=== PATIENT | female | born 1985 | race Caucasian/White ===

== ENCOUNTER 2017-07-02 15:07 | Emergency (ER) | payer BC, SELFPAY ==
[2017-07-02 15:20] VITALS: BP 136/80
--- NOTE | 2017-07-02 15:46 | EDM.PDOC ---
ED HPI GENERAL MEDICAL PROBLEM - General Chief Complaint: Genitourinary Problem Stated Complaint: BLADDER INFECTION Time Seen by Provider: 07/02/17 15:32 Source of Information: Reports: Patient, RN Notes Reviewed - History of Present Illness INITIAL COMMENTS - FREE TEXT/NARRATIVE: 4-year-old female comes in with lower abdominal discomfort, chills and just not feeling "normal". She has had some radiation of discomfort to bilateral low back. A mild voiding dysuria and frequency. She's had some slight nausea, no vomiting or diarrhea. Bladder Pain Score (Numeric/FACES): 8 - Related Data Allergies Allergy/AdvReac Type Severity Reaction Status Date / Time amoxicillin Allergy Hives Verified 07/02/17 15:20 Penicillins Allergy Hives Verified 07/02/17 15:20 Home Meds: Home Meds Cetirizine [ZyrTEC] 10 mg PO DAILY 01/21/16 [History] Desogestrel-Ethinyl Estradiol [Apri 28 Day Tablet] 1 tab PO DAILY 01/21/16 [ History] Losartan Potassium 50 mg PO BID 01/21/16 [History] buPROPion [buPROPion XL] 1 tab PO DAILY 01/21/16 [History] metFORMIN HCl [Metformin HCl] 500 mg PO BID 01/21/16 [History] Past Medical History HEENT History: Reports: Allergic Rhinitis, Otitis Media Cardiovascular History: Reports: Hypertension Other Respiratory History: Severe snoring Genitourinary History: Reports: Other (See Below) Other Genitourinary History: abnormal bun to cre ratio, hematura, proteinura, renal biopsy 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: Polycystic Ovaries Other OB/BYN History: amenorrhea, irregular menses, PCOS, pelvic pain, Psychiatric History: Reports: Anxiety, Depression Endocrine/Metabolic History: Reports: Obesity/BMI 30+ Other Endocrine/Metabolic History: abnormal glucose, L thyroid nodule - Infectious Disease History Infectious Disease History: Reports: Chicken Pox, MRSA - Past Surgical History Respiratory Surgical History: Reports: None Female Surgical History: Reports: Breast Biopsy Endocrine Surgical History: Reports: Other (See Below) Dermatological Surgical History: Reports: None Social & Family History - Family History HEENT: Reports: None Cardiac: Reports: High Cholesterol, Hypertension Respiratory: Reports: Asthma GI: Reports: Cirrhosis, Hepatitis Neurological: Reports: Alzheimers Disease, Dementia Endocrine/Metabolic: Reports: Diabetes, type II, Hypothyroidism Oncologic: Reports: Breast - Tobacco Use Smoking Status *Q: Never Smoker Second Hand Smoke Exposure: No - Caffeine Use Caffeine Use: Reports: None - Recreational Drug Use Recreational Drug Use: No ED ROS GENERAL - Review of Systems Review Of Systems: See Below Constitutional: Reports: Chills. Denies: Fever HEENT: Denies: Throat Pain Respiratory: Denies: Shortness of Breath Cardiovascular: Denies: Chest Pain GI/Abdominal: Reports: Abdominal Pain (mild achy lower abdominal and mid pelvic discomfort), Nausea. Denies: Vomiting : Reports: Dysuria, Frequency Musculoskeletal: Reports: Back Pain Skin: Reports: No Symptoms Neurological: Reports: No Symptoms ED EXAM, RENAL/ - Physical Exam Exam: See Below General Appearance: Alert, No Apparent Distress Throat/Mouth: Normal Inspection, Normal Oropharynx Head: Atraumatic. No: Facial Swelling Neck: Supple, Full Range of Motion. No: Lymphadenopathy (L), Lymphadenopathy (R ) Respiratory/Chest: No Respiratory Distress, Lungs Clear, Normal Breath Sounds Cardiovascular: Regular Rate, Rhythm GI/Abdominal: Soft, Tender (very mild tenderness lower mid abdomen). No: Guarding Extremities: Normal Inspection Neurological: Alert, Oriented Skin Exam: Warm, Dry, Normal Color Course - Vital Signs Last Recorded V/S: Last Vital Signs Temp 97.4 F 07/02/17 15:16 Pulse 87 07/02/17 15:16 Resp 16 07/02/17 15:16 BP 136/80 07/02/17 15:16 Pulse Ox 98 07/02/17 15:16 - Orders/Labs/Meds Labs: Laboratory Tests 07/02/17 07/02/17 Range/Units 15:20 15:20 Urine Color Yellow (Yellow) Urine Appearance Clear (Clear) Urine pH 6.0 (5.0-8.0) Ur Specific [place] > or = 1.030 (1.005-1.030) Urine Protein Negative (Negative) Urine Glucose (UA) Negative (Negative) Urine Ketones Negative (Negative) Urine Occult Blood Negative (Negative) Urine Nitrite Negative (Negative) Urine Bilirubin Negative (Negative) Urine Urobilinogen 0.2 (0.2-1.0) Ur Leukocyte Esterase Negative (Negative) Urine RBC Not seen (0-5) /hpf Urine WBC Not seen (0-5) /hpf Ur Epithelial Cells 0-5 (0-5) /hpf Urine Bacteria Few (FEW) /hpf Urine Mucus Few (FEW) /hpf Urine HCG, Qual Negative (NEGATIVE) Departure - Departure Time of Disposition: 16:34 Disposition: Home, Self-Care 01 Condition: Fair Clinical Impression: Abdominal pain Qualifiers: Abdominal location: lower abdomen, unspecified Qualified Code(s): R10.30 - Lower abdominal pain, unspecified Back pain Qualifiers: Back pain location: low back pain Chronicity: unspecified Back pain laterality : bilateral Sciatica presence: without sciatica Qualified Code(s): M54.5 - Low back pain - Discharge Information Referrals: Stephenie Fountain NP [Primary Care Provider] - Forms: ED Department Discharge Additional Instructions: drink plenty of water to maintain hydration, no evidence found for bladder or kidney infection today. Followup clinic as needed, return to ED as needed if symptoms worsening in any way
== END 2017-07-02 16:43 | disposition home or self-care (01) ==
LOC: JD.ED 15:07
DX: R10.30 Lower abdominal pain, unspecified (principal); M54.5 Low back pain; I10 Essential (primary) hypertension; Z88.0 Allergy status to penicillin; Z88.1 Allergy status to other antibiotic agents; Z79.899 Other long term (current) drug therapy; Z79.84 Long term (current) use of oral hypoglycemic drugs
CPT/HCPCS: 81001; 81025; 99283

== ENCOUNTER 2019-10-08 18:27 | Emergency (ER) | payer BC ==
[2019-10-08 18:44] VITALS: BP 122/59; PULSE 114
[2019-10-08] MEDS ORDERED: Sodium Chloride 0.9% 1,000 ML IV SCH (19:30)
--- NOTE | 2019-10-08 19:42 | EDM.PDOC ---
ED HPI GENERAL MEDICAL PROBLEM - General Chief Complaint: Respiratory Problem Stated Complaint: DX'D AT OUR CLINIC WITH PNEUMONIA Time Seen by Provider: 10/08/19 18:58 Source of Information: Reports: Patient, Family (Parents, child), Old Records ( CBC, CXR report 10/08/2019) History Limitations: Reports: No Limitations - History of Present Illness INITIAL COMMENTS - FREE TEXT/NARRATIVE: Ms. Cano is a pleasant 34-year-old woman with a past medical history significant for allergic rhinitis, hypertension, anxiety/depression, polycystic ovarian disease, membranous nephropathy, and a history of MRSA in 2007, who states that she developed a cough productive of aubree sputum this past , 10/03/2019 or 10/04/2019. She then developed dyspnea and chest pain yesterday, 10/07/2019. She has not had a fever. She saw her PCP in the clinic today. A CBC and chest x-ray were performed. The CBC was remarkable for a WBC count elevated at 24.65 with 3% bandemia and 82.6% neutrophilia, with the remainder of the CBC being unremarkable. The chest x-ray was read by Dr. Adams as: 1. Possible loculated right-sided pleural effusion. Other findings as noted above. 2. Consideration for chest CT could be made to further define the chest findings. Based on the CBC results and the initial viewing of the chest x-ray, the patient was told that she has pneumonia, and prescribed Levaquin. She has purchased the Levaquin, but has not started it, because since then, she was contacted by the clinic, after they received the formal chest x-ray report, and instructed to come to the ED for further evaluation and possible admission to the hospital. Despite the patient's prior history of MRSA, she reports that she continues to use antibacterial soap at home. The patient's PCP is Stephenie Fountain NP. 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 She states that she received an influenza vaccine in July 2019. 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 (see below) Other Treatments CASINO SLOT SUPERVISOR: neb treatment at home Chest Pain Score (Numeric/FACES): 8 - Related Data Allergies Allergy/AdvReac Type Severity Reaction Status Date / Time amoxicillin Allergy Hives Verified 08/12/18 14:49 Penicillins Allergy Hives Verified 08/12/18 14:49 Home Meds: Home Meds Cetirizine [ZyrTEC] 10 mg PO DAILY 01/21/16 [History] Losartan Potassium 50 mg PO BID 01/21/16 [History] buPROPion [buPROPion XL] 150 mg PO DAILY 01/21/16 [History] metFORMIN HCl [Metformin HCl] 500 mg PO BID 01/21/16 [History] Levothyroxine [Synthroid] 88 mcg PO DAILY 10/08/19 [History] Past Medical History HEENT History: Reports: Allergic Rhinitis Cardiovascular History: Reports: Hypertension Genitourinary History: Reports: Other (See Below) (Membranous nephropathy) 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: Polycystic Ovaries Psychiatric History: Reports: Anxiety, Depression Endocrine/Metabolic History: Reports: Obesity/BMI 30+ - Infectious Disease History Infectious Disease History: Reports: Chicken Pox, MRSA (2007) - Past Surgical History Female Surgical History: Reports: Section (x 1), Other (See Below) ( Left kidney biopsy) Dermatological Surgical History: Reports: Other (See Below) (Right breast debridement) Social & Family History - Family History HEENT: Reports: None Cardiac: Reports: High Cholesterol, Hypertension Respiratory: Reports: Asthma GI: Reports: Cirrhosis, Hepatitis Neurological: Reports: Alzheimers Disease, Dementia Endocrine/Metabolic: Reports: Diabetes, type II, Hypothyroidism Oncologic: Reports: Breast - Tobacco Use Smoking Status *Q: Never Smoker - Caffeine Use Caffeine Use: Reports: None - Alcohol Use Alcohol Use History: No - Recreational Drug Use Recreational Drug Use: No - Living Situation & Occupation Living situation: Reports: Single, with Family 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 ED EXAM, GENERAL - Physical Exam Exam: See Below Exam Limited By: No Limitations General Appearance: Alert, WD/WN, No Apparent Distress Eye Exam: Bilateral Eye: EOMI, Normal Inspection Ears: Normal External Exam, Hearing Grossly Normal Nose: Normal Inspection Throat/Mouth: Normal Inspection, Normal Lips, Normal Voice, No Airway Compromise Head: Atraumatic, Normocephalic Neck: Normal Inspection, Full Range of Motion Respiratory/Chest: No Respiratory Distress, Decreased Breath Sounds (right side only), Crackles (Right lower 2/3. Clear elsewhere.). No: Rhonchi, Wheezing, Stridor, Prolonged Expiration Cardiovascular: Normal Peripheral Pulses, No Edema, No Gallop, No JVD, No Murmur , No Rub, Tachycardia (regular) Peripheral Pulses: 4+: Radial (L), Radial (R) GI/Abdominal: Normal Bowel Sounds, Soft, Non-Tender, No Organomegaly, No Distention, No Abnormal Bruit, No Mass (Female) Exam: Deferred Rectal (Female) Exam: Deferred Back Exam: Normal Inspection, Full Range of Motion, NT Extremities: Normal Inspection, Normal Range of Motion, No Pedal Edema, Normal Capillary Refill Neurological: Alert, Oriented, Normal Cognition, No Motor/Sensory Deficits Psychiatric: Normal Affect Skin Exam: Warm, Dry, Intact, Normal Color, No Rash Course - Vital Signs Last Recorded V/S: Last Vital Signs Temp 37.8 C 10/08/19 18:42 Pulse 114 H 10/08/19 18:42 Resp 36 H 10/08/19 18:42 BP 122/59 L 10/08/19 18:42 Pulse Ox 92 L 10/08/19 18:42 - Orders/Labs/Meds Orders: Active Orders 24 hr Category Date Time Status Chest w Cont [CT] Stat Exams 10/08/19 19:28 Taken CULTURE BLOOD [BC] Stat Lab 10/08/19 22:10 Received CULTURE BLOOD [BC] Stat Lab 10/08/19 22:20 Received Blood Culture x2 Reflex Set [OM.PC] Stat Oth 10/08/19 21:53 Ordered Labs: Laboratory Tests 10/08/19 10/08/19 Range/Units 16:00 19:42 Sodium 138 (136-145) mEq/L Potassium 3.2 L (3.5-5.1) mEq/L Chloride 102 (98-107) mEq/L Carbon Dioxide 20 L (21-32) mEq/L Anion Gap 19.2 H (5-15) BUN 34 H (7-18) mg/dL Creatinine 2.3 H D (0.55-1.02) mg/dL Est Cr Clr Drug Dosing 32.57 mL/min Estimated GFR (MDRD) 24 (>60) mL/min BUN/Creatinine Ratio 14.8 (14-18) Glucose 109 H (74-106) mg/dL Calcium 8.5 (8.5-10.1) mg/dL Total Bilirubin 0.7 (0.2-1.0) mg/dL AST 12 L (15-37) U/L ALT 16 (14-59) U/L Alkaline Phosphatase 118 H (46-116) U/L Total Protein 6.5 (6.4-8.2) g/dl Albumin 2.5 L (3.4-5.0) g/dl Globulin 4.0 gm/dL Albumin/Globulin Ratio 0.6 L (1-2) MRSA (PCR) Negative Meds: Medications Discontinued Medications Generic Name Dose Route Start Last Admin Trade Name Freq PRN Reason Stop Dose Admin Sodium Chloride 1,000 mls @ 150 mls/hr 10/08/19 19:30 10/08/19 19:47 Normal Saline IV 150 mls/hr ASDIRECTED GUSTABO Administration Levofloxacin/Dextrose 750 mg/ 150 mls @ 100 mls/hr 10/08/19 21:37 10/08/19 22 :16 Premix IV 10/08/19 23:06 100 mls/hr ONETIME STA Administration Meropenem 1 gm/ Sodium 100 mls @ 200 mls/hr 10/08/19 21:36 10/08/19 22:16 Chloride IV 10/08/19 22:05 200 mls/hr ONETIME STA Administration Metronidazole 500 mg/ Premix 100 mls @ 100 mls/hr 10/08/19 21:38 10/08/19 22: 16 IV 10/08/19 22:37 100 mls/hr ONETIME STA Administration Iopamidol 80 ml 10/08/19 20:40 10/08/19 20:58 Isovue-300 (61%) IVPUSH 10/08/19 20:41 80 ml ONETIME ONE Administration Potassium Chloride 40 meq 10/08/19 20:45 10/08/19 21:29 Klor-Con M20 PO 10/08/19 20:46 40 meq ONETIME ONE Administration Sodium Chloride 10 ml 10/08/19 20:40 10/08/19 20:59 Saline Flush FLUSH 10 ml ONETIME PRN Administration KEEP VEIN OPEN - Re-Assessments/Exams Free Text/Narrative Re-Assessment/Exam: 10/08/19 19:38 As above, the chest x-ray report indicates the patient has a possible loculated right-sided pleural effusion. Based on the patient's history, I am concerned that this is a parapneumonic effusion, which raises the possibility that it could be an empyema. I have therefore ordered a CT of the chest with IV contrast to better evaluate, and, based on the CT findings, I may need to perform a bedside thoracentesis. I have also added a CMP and an influenza swab. Because of the patient's history of MRSA, and because she continues to use antibacterial soaps at home, I have added an MRSA screen by PCR. The patient will receive IV fluid. 10/08/19 20:43 The patient's influenza swab has returned positive for both influenza A and influenza B. Her CMP is remarkable for a potassium mildly depressed at 3.2, a bicarbonate mildly depressed at 20 with an anion gap elevated at 19.2, a BUN/Cr elevated at 34/2.3, a blood glucose slightly elevated at 109, and an alkaline phosphatase slightly elevated at 118, with the remainder of her CMP being unremarkable. The patient's BUN/Cr were 11/1.0 on 07/17/2019, indicating that her renal insufficiency is acute. Based on the above, I will order 40 mEq of oral potassium. IV fluid will be continued. Unfortunately, it is too late to treat the patient with Tamiflu. 10/08/19 21:18 CT of the chest with IV contrast is read by George as: 1. A large right lung infiltrate with loculated right pleural effusion. An empyema should be considered. 2. Multiple small nodular densities in the left lower lung the largest 1 measures 9 mm. [sic] 3. Enlarged mediastinal lymphadenopathy the largest involves the right paratracheal region measuring 3 cm. The patient's MRSA screen has returned negative. 10/08/19 21:29 Test results discussed with the patient and her mother. I suspect that the patient acquired influenza, developed viral pneumonia, then a bacterial superinfection with subsequent parapneumonic effusion and empyema. Because of the possibility of an empyema, I am recommending transfer to [place], as the patient may require VATS. In the meantime, since the MRSA screen is negative, I will start the patient on empiric antibiotics. Ordinarily, we would start her on ceftriaxone and metronidazole, however, the patient reports hives to penicillin, therefore current guidelines recommend either imipenem or meropenem + levofloxacin + and metronidazole. This facility does not carry imipenem, therefore I will start her on meropenem, levofloxacin, and metronidazole. Because of the patient's renal insufficiency, with a current CrCl of 32.57, the meropenem requires renal dosing, however, the levofloxacin and metronidazole do not. The patient's mother asked how long the patient will need to be hospitalized. I explained that it is very difficult for me to estimate at this time, but I ballparked one week. Recommending transfer and my estimate of 1 week upset the patient's mother, as the patient has a 10-year-old son who needs to be taken to school. She does not understand why we cannot treat the patient here in [place]. I explained, however, that the patient's current condition is too complicated for this hospital, therefore transfer is indicated. The patient prefers [facility]. 10/08/19 21:57 Case discussed with Cecelia at [facility] at 21:40. Case then discussed with Dr. Ramos, Hospitalist at [facility], at 21:50. He accepted the patient for transfer to their facility. The patient will be transported by ground ambulance. 10/08/19 22:13 I have pushed the chest x-ray and CT/chest images to [facility]. Departure - Departure Time of Disposition: 21:55 Disposition: DC/Tfer to Acute Hospital 02 Condition: Fair Clinical Impression: Pneumonia, Empyema of right pleural space, Influenza A, Influenza B, Acute renal insufficiency - Discharge Information *PRESCRIPTION DRUG MONITORING PROGRAM REVIEWED*: Not Applicable *COPY OF PRESCRIPTION DRUG MONITORING REPORT IN PATIENT ESPINOZA: Not Applicable Referrals: Stephenie Fountain [facility] [employer] [Primary Care Provider] - Forms: ED Department Discharge Sepsis Event Note - Evaluation Sepsis Screening Result: No Definite Risk - Focused Exam Vital Signs: Vital Signs Temp Pulse Resp BP Pulse Ox 10/08/19 18:42 37.8 C 114 H 36 H 122/59 L 92 L Date Exam was Performed: 10/09/19 Time Exam was Performed: 00:07 - My Orders Last 24 Hours: My Active Orders 10/08/19 19:28 Chest w Cont [CT] Stat 10/08/19 21:53 Blood Culture x2 Reflex Set [OM.PC] Stat 10/08/19 22:10 CULTURE BLOOD [BC] Stat 10/08/19 22:20 CULTURE BLOOD [BC] Stat - Assessment/Plan Last 24 Hours: My Active Orders 10/08/19 19:28 Chest w Cont [CT] Stat 10/08/19 21:53 Blood Culture x2 Reflex Set [OM.PC] Stat 10/08/19 22:10 CULTURE BLOOD [BC] Stat 10/08/19 22:20 CULTURE BLOOD [BC] Stat
[2019-10-08] MEDS ORDERED: Sodium Chloride 0.9% 10 ML Syringe FLUSH PRN (20:40)
[2019-10-08] MEDS ORDERED: Iopamidol 612 MG/ML 100 ML Bottle IVPUSH ONE (20:40)
[2019-10-08] MEDS ORDERED: Potassium Chloride 20 MEQ Tab.ER PO ONE (20:45)
[2019-10-08] MEDS ORDERED: Meropenem 1 GM in Sodium Chloride 0.9% 100 ML IV STA (21:36)
[2019-10-08] MEDS ORDERED: Levofloxacin/Dextrose 5%-Water 750 MG in Premix Bag 1 BAG IV STA (21:37)
[2019-10-08] MEDS ORDERED: metroNIDAZOLE/Normal Saline 500 MG in Premix Bag 1 BAG IV STA (21:38)
--- NOTE | 2019-10-09 07:06 | CT ---
Chest CT Technique: Multiple axial sections were obtained from above the lung apices inferiorly through the lung bases. Intravenous contrast was utilized. Comparison: Prior chest x-ray performed earlier on the same day (3:28 PM) Findings: Loculated pleural effusion is noted within the right lung base. This extends circumferentially around the right base with smaller amount of fluid extending into the upper right lung. There are areas of atelectasis as well as consolidation presumably representing a combination of atelectasis as well as pneumonia. The pleural effusion has simple Hounsfield unit measurements. There is mediastinal adenopathy being seen. These lymph nodes are more prominent in number and size than usually seen. Largest lymph node measures around 3.0 cm in size. Aorta shows no aneurysm. No pericardial fluid is seen. Visualized portions of the upper abdominal structures show no discrete abnormality. Mild adenopathy is seen within both axillary regions slightly more prominent on the right side. Small and vague nodular type densities are seen within the left lung base. Bone window settings were reviewed which show mild degenerative change scattered within the spine. No acute osseous finding is seen. Impression: 1. Loculated right-sided pleural effusion. Pleural fluid has simple Hounsfield unit measurements. 2. Areas of atelectasis within the right lung base as well as more consolidation along the right lateral chest within the right base and right upper lung presumably due to pneumonia. 3. Adenopathy within the mediastinum and hilar regions. Uncertain if this represents reactive change from the right lung process or represents lymphoproliferative process such as lymphoma. 4. Small vague nodules within the left lung base. Metastatic pulmonary disease is difficult to exclude at this time. Findings may also represent nodular appearing areas of infection. Diagnostic code #9 This report was dictated in [place] Standard Time I agree with preliminary report from [facility], finalized on 10/08/19, 10:15 PM Central Time
== END 2019-10-08 22:50 ==
LOC: JD.ED 18:27
DX: J10.00 Influenza due to other identified influenza virus with unspecified type of pneumonia (principal); J43.9 Emphysema, unspecified; N28.9 Disorder of kidney and ureter, unspecified; I10 Essential (primary) hypertension; F41.9 Anxiety disorder, unspecified; F32.9 Major depressive disorder, single episode, unspecified; E66.9 Obesity, unspecified; Z68.41 Body mass index [BMI] 40.0-44.9, adult; Z79.899 Other long term (current) drug therapy; Z88.1 Allergy status to other antibiotic agents; Z88.0 Allergy status to penicillin
CPT/HCPCS: 36415; 71260; 80053; 87040; 87641; 87804; 96361; 96365; 96368; 99285; A9270; J1956; J2185; J3490; J7030; J7050; Q9967

== ENCOUNTER 2025-05-17 10:01 | Inpatient (IN) | payer BC, MEDICAID ==
[2025-05-17] MEDS ORDERED: Sodium Chloride 0.9% 10 ML Syringe FLUSH PRN (10:10)
[2025-05-17] MEDS: Iopamidol 755 Mg/ML 100 ML Bottle IVPUSH ONE (10:24)
[2025-05-17] MEDS: methylPREDNISolone Sodium Succinate 125 MG/2 ML SDV IVPUSH ONE (10:37)
[2025-05-17 10:39] LABS: BASOPHILS ABSOLUTE AUTO 0.0 K/mm3 (0.0-0.2); BASOPHILS PERCENT AUTO 0.1 % (0.0-1.0); EOSINOPHILS ABSOLUTE AUTO 0.0 K/mm3 (0.0-0.4); EOSINOPHILS PERCENT AUTO 0.0 % (0.0-6.0); IMMATURE GRAN ABSOLUTE AUTO 0.16 K/mm3 (0.00-0.05); IMMATURE GRAN PERCENT AUTO 1.1 % (0.0-0.4); LYMPHOCYTES ABSOLUTE AUTO 1.4 K/mm3 (1.0-4.8); LYMPHOCYTES PERCENT AUTO 10.2 % (24.0-44.0); MEAN PLATELET VOLUME 8.7 fl (9.4-12.3); MONOCYTES ABSOLUTE AUTO 1.1 K/mm3 (0.0-0.8); MONOCYTES PERCENT AUTO 7.6 % (0.0-8.0); NEUTROPHILS ABSOLUTE AUTO 11.3 K/mm3 (1.8-7.7); NEUTROPHILS PERCENT AUTO 81.0 % (41.0-71.0); NRBC ABSOLUTE 0.00 (0.00-0.02); NRBC PERCENT 0.0 % (0.0-0.2); PLATELET COUNT,PLT 360 K/mm3 (150-400); RED BLOOD CELL COUNT 4.81 M/mm3 (4.10-5.30); WHITE BLOOD CELL COUNT,WBC 14.00 K/mm3 (3.9-11.3)
[2025-05-17 10:39] LABS: BASE EXCESS ARTERIAL -1.2 (-2-2.0); BICARBONATE,ARTERIAL 22.0 meq/L (22.0-26.0); O2 SATURATION ARTERIAL 94.7 % (96.0-97.0); PCO2 ARTERIAL 31.0 mmHg (35.0-45.0); PO2 ARTERIAL 71.0 mmHg (80.0-100.0)
[2025-05-17 11:25] LABS: A/G RATIO 0.8 (1-2); ALANINE AMINOTRANSFERASE,ALT 21 U/L (14-59); ASPARTATE AMNIOTRANSFERASE,AST 12 U/L (15-37); BILIRUBIN TOTAL 0.9 mg/dL (0.2-1.0); BLOOD UREA NITROGEN,BUN 12 mg/dL (7-18); CARBON DIOXIDE,CO2 25 mEq/L (21-32); CHLORIDE,CL 102 mEq/L (98-107); CREATININE 0.9 mg/dL (0.55-1.02); EST CRCL DRUG DOSING (CG) 79.34 mL/min; ESTIMATED GFR 84 mL/min (>60); GLUCOSE RANDOM 80 mg/dL (70-99); POTASSIUM,K 3.2 mEq/L (3.5-5.1); PROTEIN TOTAL,TP 6.2 g/dl (6.4-8.2); SODIUM,NA 139 mEq/L (136-145); TROPONIN I HIGH SENSITIVITY 11 pg/mL (<=51)
[2025-05-17 11:50] LABS: INR 1.46
[2025-05-17 11:57] LABS: LACTIC ACID 1.1 mmol/L (0.4-2.0)
[2025-05-17] MEDS ORDERED: LORazepam 2 MG/ML SDV IVPUSH PRN (16:44)
[2025-05-17] MEDS ORDERED: Ondansetron 4 MG Tab.DIS PO PRN (16:49)
[2025-05-17] MEDS ORDERED: Ondansetron 4 MG/2 ML SDV IV PRN (16:49)
[2025-05-17] MEDS ORDERED: Sennosides/Docusate Sodium 50-8.6 MG Tab PO PRN (16:49)
[2025-05-17] MEDS: methylPREDNISolone Sodium Succinate 40 MG/1 ML SDV IVPUSH SCH (17:14)
[2025-05-17] MEDS: Potassium Chloride 20 MEQ Tab.ER PO ONE (17:14)
[2025-05-17 17:33] LABS: LACTATE DEHYDROGENASE,LDH 187.0 U/L (81-234); TSH 0.881 uIU/mL (0.358-3.74)
[2025-05-17] MEDS: Formoterol/Mometasone 200-5 MCG 8.8 GM Inhaler INH SCH (20:11)
[2025-05-17] MEDS ORDERED: Non-Formulary Medication 1 Each (Escitalopram 10 MG Tablet) PO SCH (21:00)
[2025-05-17] MEDS ORDERED: Non-Formulary Medication 1 Each (Fluticasone/Salmeterol 120 PUFF/INHALER Inhaler) INH SCH (21:00)
[2025-05-18 05:49] LABS: BASOPHILS ABSOLUTE AUTO 0.0 K/mm3 (0.0-0.2); BASOPHILS PERCENT AUTO 0.1 % (0.0-1.0); EOSINOPHILS ABSOLUTE AUTO 0.0 K/mm3 (0.0-0.4); EOSINOPHILS PERCENT AUTO 0.0 % (0.0-6.0); IMMATURE GRAN ABSOLUTE AUTO 0.06 K/mm3 (0.00-0.05); IMMATURE GRAN PERCENT AUTO 0.8 % (0.0-0.4); LYMPHOCYTES ABSOLUTE AUTO 1.2 K/mm3 (1.0-4.8); LYMPHOCYTES PERCENT AUTO 15.5 % (24.0-44.0); MEAN PLATELET VOLUME 9.0 fl (9.4-12.3); MONOCYTES ABSOLUTE AUTO 0.4 K/mm3 (0.0-0.8); MONOCYTES PERCENT AUTO 5.2 % (0.0-8.0); NEUTROPHILS ABSOLUTE AUTO 5.9 K/mm3 (1.8-7.7); NEUTROPHILS PERCENT AUTO 78.4 % (41.0-71.0); NRBC ABSOLUTE 0.00 (0.00-0.02); NRBC PERCENT 0.0 % (0.0-0.2); PLATELET COUNT,PLT 310 K/mm3 (150-400); RED BLOOD CELL COUNT 4.12 M/mm3 (4.10-5.30); WHITE BLOOD CELL COUNT,WBC 7.49 K/mm3 (3.9-11.3)
[2025-05-18 06:05] LABS: INR 1.28
[2025-05-18 06:19] LABS: A/G RATIO 0.7 (1-2); ALANINE AMINOTRANSFERASE,ALT 16 U/L (14-59); ASPARTATE AMNIOTRANSFERASE,AST 8 U/L (15-37); BILIRUBIN TOTAL 0.4 mg/dL (0.2-1.0); BLOOD UREA NITROGEN,BUN 12 mg/dL (7-18); CARBON DIOXIDE,CO2 27 mEq/L (21-32); CHLORIDE,CL 105 mEq/L (98-107); CREATININE 0.5 mg/dL (0.55-1.02); EST CRCL DRUG DOSING (CG) 142.81 mL/min; ESTIMATED GFR 123 mL/min (>60); GLUCOSE RANDOM 129 mg/dL (70-99); PHOSPHORUS 3.6 mg/dL (2.6-4.7); POTASSIUM,K 4.2 mEq/L (3.5-5.1); PROTEIN TOTAL,TP 5.7 g/dl (6.4-8.2); SODIUM,NA 141 mEq/L (136-145)
[2025-05-18] MEDS: buPROPion 150 MG Tab.ER PO SCH (08:43)
[2025-05-19 06:09] LABS: BASOPHILS ABSOLUTE AUTO 0.0 K/mm3 (0.0-0.2); BASOPHILS PERCENT AUTO 0.2 % (0.0-1.0); EOSINOPHILS ABSOLUTE AUTO 0.0 K/mm3 (0.0-0.4); EOSINOPHILS PERCENT AUTO 0.0 % (0.0-6.0); IMMATURE GRAN ABSOLUTE AUTO 0.05 K/mm3 (0.00-0.05); IMMATURE GRAN PERCENT AUTO 0.9 % (0.0-0.4); LYMPHOCYTES ABSOLUTE AUTO 1.4 K/mm3 (1.0-4.8); LYMPHOCYTES PERCENT AUTO 23.6 % (24.0-44.0); MEAN PLATELET VOLUME 9.1 fl (9.4-12.3); MONOCYTES ABSOLUTE AUTO 0.3 K/mm3 (0.0-0.8); MONOCYTES PERCENT AUTO 5.3 % (0.0-8.0); NEUTROPHILS ABSOLUTE AUTO 4.1 K/mm3 (1.8-7.7); NEUTROPHILS PERCENT AUTO 70.0 % (41.0-71.0); NRBC ABSOLUTE 0.00 (0.00-0.02); NRBC PERCENT 0.0 % (0.0-0.2); PLATELET COUNT,PLT 333 K/mm3 (150-400); RED BLOOD CELL COUNT 4.17 M/mm3 (4.10-5.30); WHITE BLOOD CELL COUNT,WBC 5.85 K/mm3 (3.9-11.3)
[2025-05-19 06:34] LABS: BLOOD UREA NITROGEN,BUN 15.0 mg/dL (7-18); CARBON DIOXIDE,CO2 28.0 mEq/L (21-32); CHLORIDE,CL 107.0 mEq/L (98-107); CREATININE 0.5 mg/dL (0.55-1.02); EST CRCL DRUG DOSING (CG) 142.81 mL/min; ESTIMATED GFR 123.0 mL/min (>60); GLUCOSE RANDOM 128.0 mg/dL (70-99); POTASSIUM,K 4.2 mEq/L (3.5-5.1); SODIUM,NA 143.0 mEq/L (136-145)
[2025-05-20 04:57] LABS: BASOPHILS ABSOLUTE AUTO 0.0 K/mm3 (0.0-0.2); BASOPHILS PERCENT AUTO 0.2 % (0.0-1.0); EOSINOPHILS ABSOLUTE AUTO 0.0 K/mm3 (0.0-0.4); EOSINOPHILS PERCENT AUTO 0.0 % (0.0-6.0); IMMATURE GRAN ABSOLUTE AUTO 0.11 K/mm3 (0.00-0.05); IMMATURE GRAN PERCENT AUTO 1.9 % (0.0-0.4); LYMPHOCYTES ABSOLUTE AUTO 1.5 K/mm3 (1.0-4.8); LYMPHOCYTES PERCENT AUTO 26.1 % (24.0-44.0); MEAN PLATELET VOLUME 9.0 fl (9.4-12.3); MONOCYTES ABSOLUTE AUTO 0.4 K/mm3 (0.0-0.8); MONOCYTES PERCENT AUTO 7.5 % (0.0-8.0); NEUTROPHILS ABSOLUTE AUTO 3.7 K/mm3 (1.8-7.7); NEUTROPHILS PERCENT AUTO 64.3 % (41.0-71.0); NRBC ABSOLUTE 0.00 (0.00-0.02); NRBC PERCENT 0.0 % (0.0-0.2); PLATELET COUNT,PLT 363 K/mm3 (150-400); RED BLOOD CELL COUNT 4.10 M/mm3 (4.10-5.30); WHITE BLOOD CELL COUNT,WBC 5.70 K/mm3 (3.9-11.3)
[2025-05-20 06:14] LABS: BLOOD UREA NITROGEN,BUN 17.0 mg/dL (7-18); CARBON DIOXIDE,CO2 30.0 mEq/L (21-32); CHLORIDE,CL 107.0 mEq/L (98-107); CREATININE 0.5 mg/dL (0.55-1.02); EST CRCL DRUG DOSING (CG) 142.81 mL/min; ESTIMATED GFR 123.0 mL/min (>60); GLUCOSE RANDOM 115.0 mg/dL (70-99); POTASSIUM,K 4.1 mEq/L (3.5-5.1); SODIUM,NA 142.0 mEq/L (136-145)
[2025-05-21 04:47] LABS: BASOPHILS ABSOLUTE AUTO 0.0 K/mm3 (0.0-0.2); BASOPHILS PERCENT AUTO 0.2 % (0.0-1.0); EOSINOPHILS ABSOLUTE AUTO 0.0 K/mm3 (0.0-0.4); EOSINOPHILS PERCENT AUTO 0.0 % (0.0-6.0); IMMATURE GRAN ABSOLUTE AUTO 0.18 K/mm3 (0.00-0.05); IMMATURE GRAN PERCENT AUTO 2.8 % (0.0-0.4); LYMPHOCYTES ABSOLUTE AUTO 1.9 K/mm3 (1.0-4.8); LYMPHOCYTES PERCENT AUTO 28.9 % (24.0-44.0); MEAN PLATELET VOLUME 9.3 fl (9.4-12.3); MONOCYTES ABSOLUTE AUTO 0.5 K/mm3 (0.0-0.8); MONOCYTES PERCENT AUTO 8.2 % (0.0-8.0); NEUTROPHILS ABSOLUTE AUTO 3.9 K/mm3 (1.8-7.7); NEUTROPHILS PERCENT AUTO 59.9 % (41.0-71.0); NRBC ABSOLUTE 0.00 (0.00-0.02); NRBC PERCENT 0.0 % (0.0-0.2); PLATELET COUNT,PLT 376 K/mm3 (150-400); RED BLOOD CELL COUNT 4.20 M/mm3 (4.10-5.30); WHITE BLOOD CELL COUNT,WBC 6.48 K/mm3 (3.9-11.3)
[2025-05-21 05:06] LABS: BLOOD UREA NITROGEN,BUN 17.0 mg/dL (7-18); CARBON DIOXIDE,CO2 29.0 mEq/L (21-32); CHLORIDE,CL 105.0 mEq/L (98-107); CREATININE 0.7 mg/dL (0.55-1.02); EST CRCL DRUG DOSING (CG) 102.01 mL/min; ESTIMATED GFR 113.0 mL/min (>60); GLUCOSE RANDOM 107.0 mg/dL (70-99); POTASSIUM,K 3.9 mEq/L (3.5-5.1); SODIUM,NA 140.0 mEq/L (136-145)
[2025-05-21] MEDS: methylPREDNISolone Sodium Succinate 40 MG/1 ML SDV IVPUSH SCH (05:19)
[2025-05-23 16:55] VITALS: BP 128/60; PULSE 87
== END 2025-05-23 16:42 | disposition home or self-care (01) | DRG 137 ==
LOC: JD.ED 10:01 → JD.MS 13:21
PROVIDERS: ADMIT Student in an Organized Health Care Education/Training Program; ATTEND Family Medicine
PROC: 4A03XR1 Measurement of Arterial Saturation, Peripheral, External Approach (ICD-10-PCS; principal; 2025-05-17)
PROC: 3E03329 Introduction of Other Anti-infective into Peripheral Vein, Percutaneous Approach (ICD-10-PCS; 2025-05-17)
PROC: 5A0935A Assistance with Respiratory Ventilation, Less than 24 Consecutive Hours, High Flow/Velocity Cannula (ICD-10-PCS; 2025-05-17)
DX: J14 Pneumonia due to Hemophilus influenzae (principal); J96.01 Acute respiratory failure with hypoxia; R78.81 Bacteremia; E87.3 Alkalosis; I10 Essential (primary) hypertension; F41.9 Anxiety disorder, unspecified; F32.A Depression, unspecified; E66.9 Obesity, unspecified; E28.2 Polycystic ovarian syndrome; N06.20 Isolated proteinuria with diffuse membranous glomerulonephritis, unspecified; E89.0 Postprocedural hypothyroidism; J98.8 Other specified respiratory disorders; G43.909 Migraine, unspecified, not intractable, without status migrainosus; D49.89 Neoplasm of unspecified behavior of other specified sites; Z88.0 Allergy status to penicillin; Z91.041 Radiographic dye allergy status; Z79.899 Other long term (current) drug therapy; Z79.84 Long term (current) use of oral hypoglycemic drugs; Z79.890 Hormone replacement therapy; Z68.34 Body mass index [BMI] 34.0-34.9, adult
CPT/HCPCS: 36415; 36600; 71275; 71275-26; 80048; 80053; 82803; 83605; 83615; 83735; 83880; 84100; 84443; 84484; 85025; 85610; 86140; 87040; 87070; 87154; 87205; 87426-QW; 87641; 93005; 93010; 94640; 94667; 94668; 94761; 96365; 96375; 99223; 99232; 99233; 99239; 99285; 99285-25; A9270-GY; J0456; J0692; J0696; J1650; J2919; J3373; J3475; J7050; J7512; Q9967